=== PATIENT | female | born 1985 | race Caucasian/White ===

== ENCOUNTER 2017-04-25 13:47 | Emergency (ER) | payer MEDICAID, OTHER ==
[2017-04-25 14:46] VITALS: BP 136/68; PULSE 97; RESP 18; TEMP 98.5; O2SAT 98
--- NOTE | 2017-04-25 15:11 | C.PDOC ---
History Of Present Illness 31 year old female presents to ED with complaints of right ear pain for 4 days that radiates into her throat and neck. She admits to recent swimming in the pool and feeling water stuck in ear. She denies any fever, discharge, injury, foreign body sensation. Time Seen by Provider: 04/25/17 15:02 Chief Complaint (Nursing): ENT Problem History Per: Patient History/Exam Limitations: None Onset/Duration Of Symptoms: Days (4) Current Symptoms Are (Timing): Still Present Quality (Ear): Pain W/Touch. denies: Redness, Swelling, Discharge, Foreign Body Past Medical History Reviewed: Historical Data, Nursing Documentation, Vital Signs Vital Signs: Last Vital Signs Temp 98.5 F 04/25/17 14:45 Pulse 97 H 04/25/17 14:45 Resp 18 04/25/17 14:45 BP 136/68 04/25/17 14:45 Pulse Ox 98 04/25/17 15:58 Family History: States: Unknown Family Hx - Social History Hx Tobacco Use: No Hx Alcohol Use: No Hx Substance Use: No - Immunization History Hx Tetanus Toxoid Vaccination: Yes Hx Influenza Vaccination: Yes (06/2016) Hx Pneumococcal Vaccination: No Review Of Systems Except As Marked, All Systems Reviewed And Found Negative. Constitutional: Negative for: Fever, Chills ENT: Positive for: Ear Pain (right), Throat Pain. Negative for: Ear Discharge, Mouth Pain, Throat Swelling Musculoskeletal: Positive for: Neck Pain. Negative for: Shoulder Pain, Back Pain Skin: Negative for: Rash Physical Exam - Physical Exam Appears: Non-toxic, No Acute Distress Skin: Normal Color, Warm, Dry Head: Atraumatic, Normacephalic Eye(s): bilateral: Normal Inspection, EOMI Ear(s): Left: Normal, Right: Other (tragus tender to palpation, ear canal edematous and tender with exudates, TM dull) Nose: Normal Oral Mucosa: Moist Throat: Normal, No Erythema, No Exudate, No Drooling Neck: Normal ROM, Supple Cardiovascular: Rhythm Regular, No Murmur Respiratory: Normal Breath Sounds, No Rales, No Rhonchi, No Wheezing Extremity: Bilateral: Atraumatic, Normal ROM Neurological/Psych: Oriented x3, Normal Speech, Normal Cognition ED Course And Treatment O2 Sat by Pulse Oximetry: 98 (RA) Pulse Ox Interpretation: Normal Medical Decision Making Medical Decision Makin31 year old female with right ear pain, exam consistent with OE. Will treat with otic drops. Recommend Motrin for pain. Disposition Counseled Patient/Family Regarding: Need For Followup, Rx Given - Disposition Referrals: Denys Justin MD [Staff Provider] - Disposition: HOME/ ROUTINE Disposition Time: 15:10 Condition: STABLE Additional Instructions: Follow up with your primary medical doctor or clinic in 2-5 days for further evaluation. Take medications as prescribed. Return to the emergency department at any time if symptoms persist or worsen. Prescriptions: Ibuprofen [Motrin Tab] 800 mg PO Q12 #14 tab Ofloxacin Otic 0.3% [Floxin 0.3% Otic Soln] 2 drop AD BID #1 bottle Instructions: Otitis Externa (ED) Forms: [employer] (Guinean) - POA Present On Arrival: None - Clinical Impression Clinical Impression: Otitis externa - PA / EMERGENCY SERVICES DIRECTOR / Resident Statement MD/DO has reviewed & agrees with the documentation as recorded. - Scribe Statement The provider has reviewed the documentation as recorded by the Scribedelmira Sage All medical record entries made by the Rachel were at my direction and personally dictated by me. I have reviewed the chart and agree that the record accurately reflects my personal performance of the history, physical exam, medical decision making, and the department course for this patient. I have also personally directed, reviewed, and agree with the discharge instructions and disposition.
== END 2017-04-25 16:01 | disposition home or self-care (01) ==
LOC: C.ER 13:47
DX: H60.91 Unspecified otitis externa, right ear (principal)

== ENCOUNTER 2018-05-04 09:06 | Emergency (ER) | payer MEDICAID, OTHER ==
[2018-05-04 09:10] VITALS: BMI 31.6
[2018-05-04 09:13] VITALS: RESP 18
[2018-05-04] MEDS ORDERED: Sodium Chloride 0.9% 1,000 ML IV ONE (09:44)
--- NOTE | 2018-05-04 09:44 | C.PDOC ---
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 Patient states she has intermittent suprapubic pain for 1 month that only appears when stretching. Patient states RLQ pain is sharp and she has more intense pelvic pain today. Patient notes the pain is similar to her liver cyst she had 15 years ago. Patient denies other PSHx, fever, nausea, vomiting, diarrhea, or UTI symptoms. Patient's LNMP was 2 weeks ago. WORSENING LOWER ABD PAIN, NEW ONSET RLQ PAIN TODAY. INTERMIT SUPRAPUB PAIN X 1 MO, PRESENT ONLY DURING STRETCHING. NEW ONSET RLQ SHARP, MORE INTENSE PELVIC PAIN TODAY. HO LIVER CYST REMOVAL >15 YRS AGO "THIS FEELS SIMILIAR TO THAT". DENIES OTHER PSH. LMP 2 WEEKS. NO FEVER, NVD , UTI SX EXAM MILD DIST NONTOXIC ABD MIN RLQ TEND OBESE SOFT NO R/G REMAINDER NEG MDM RO STONE VS APPY, RUPTURED CYST. PT OFFERED PAIN RX, DOES NOT WANT @ THIS TIME. Time Seen by Provider: 05/04/18 09:26 Chief Complaint (Nursing): Abdominal Pain History Per: Patient History/Exam Limitations: no limitations Onset/Duration Of Symptoms: Days (x1 month) Current Symptoms Are (Timing): Still Present Location Of Pain/Discomfort: RLQ, Suprapubic Associated Symptoms: Other (LNMP 2 weeks ago). denies: Fever, Chills, Nausea, Vomiting, Urinary Symptoms Past Medical History Reviewed: Historical Data, Nursing Documentation, Vital Signs Vital Signs: Last Vital Signs Temp 98.4 F 05/04/18 12:26 Pulse 71 05/04/18 12:26 Resp 18 05/04/18 12:26 BP 121/77 05/04/18 12:26 Pulse Ox 99 05/04/18 12:26 Family History: States: Unknown Family Hx - Social History Hx Tobacco Use: No Hx Alcohol Use: No Hx Substance Use: No - Immunization History Hx Tetanus Toxoid Vaccination: Yes Hx Influenza Vaccination: Yes (06/2016) Hx Pneumococcal Vaccination: Yes Review Of Systems Except As Marked, All Systems Reviewed And Found Negative. Constitutional: Negative for: Fever, Other (hx of other PSHx) Gastrointestinal: Positive for: Abdominal Pain (suprapubic and RLQ). Negative for: Nausea, Vomiting, Diarrhea Genitourinary: Negative for: Other (UTI symptoms) Physical Exam - Physical Exam Appears: Well, Non-toxic, In Acute Distress (mild ), Other (obese) Skin: Normal Color, Warm, Dry Head: Atraumatic, Normacephalic Eye(s): bilateral: Normal Inspection Neck: Normal ROM, Supple Chest: Symmetrical, No Deformity Cardiovascular: Rhythm Regular Respiratory: Normal Breath Sounds, No Rales, No Rhonchi, No Wheezing Gastrointestinal/Abdominal: Soft, Tenderness (abd minor RLQ tenderness), No Guarding, No Rebound Back: No CVA Tenderness Extremity: Normal ROM (x4) Neurological/Psych: Oriented x3, Normal Speech, Normal Motor, Normal Sensation, Normal Reflexes Gait: Steady ED Course And Treatment - Laboratory Results Result Diagrams: 05/04/18 09:59 05/04/18 09:59 O2 Sat by Pulse Oximetry: 98 (RA) Pulse Ox Interpretation: Normal Progress Note: Impression: intermittent suprapubic pain x1 month with new onset RLQ pain. Plans: -- CT abdomen/pelvis. -- blood work. -- IV fluids. -- test. Reassess: Patient is resting comfortably, abdomen remains soft. Patient is advised to f/u with PCP in 1-2 days. -- UA Progress - Re-Evaluation Re-evaluation Note: 05/04/18 13:47 CT REPORT REVIEWED. VSS ADVISED FU OBGYN - Data Reviewed Data Reviewed: Lab, Diagnostic imaging, Old records Medical Decision Making Medical Decision Making: R/o stone vs appendicitis, ruptured cyst. Patient offered pain medications, but does not want it at this time. Disposition Counseled Patient/Family Regarding: Studies Performed, Diagnosis, Need For Followup - Disposition Referrals: [facility] [Outside] [facility] [Outside] [facility],OBGYN [Other] Disposition: HOME/ ROUTINE Disposition Time: 13:48 Condition: IMPROVED Prescriptions: Acetaminophen with Codeine [Tylenol with Codeine No. 3 300 mg-30 mg] 1 tab PO Q6 PRN #12 tab PRN Reason: Pain, Moderate (4-7) Ibuprofen [Motrin] 600 mg PO Q6 #30 tab Instructions: Acute Pelvic Pain (DC) Forms: [employer] (Guyanese) - Clinical Impression Clinical Impression: Abdominal pain, Pelvic pain - Scribe Statement The provider has reviewed the documentation as recorded by the Rachel Adames Do Provider Attestation: All medical record entries made by the Rachel were at my direction and personally dictated by me. I have reviewed the chart and agree that the record accurately reflects my personal performance of the history, physical exam, medical decision making, and the department course for this patient. I have also personally directed, reviewed, and agree with the discharge instructions and disposition.
[2018-05-04 09:55] LABS: SQUAMOUS EPITHIAL 37 /hpf (0-5); URINE BACTERIA RARE (<OCC); URINE BILIRUBIN NEGATIVE (NEGATIVE); URINE BLOOD NEGATIVE (NEGATIVE); URINE CLARITY Hazy (Clear); URINE COLOR Yellow (YELLOW); URINE GLUCOSE (UA) NORMAL (Normal); URINE LEUKOCYTE ESTERASE NEG Leu/uL (Negative); URINE PROTEIN NEGATIVE (NEGATIVE)
[2018-05-04 10:04] LABS: BASO % 0.5 % (0.0-2.0); EOS # 0.2 K/uL (0.0-0.7); HEMOGLOBIN 14.5 g/dL (11.0-16.0); LYMPH # 1.8 K/uL (1.0-4.3); LYMPH % 22.8 % (20.0-40.0); MEAN CELL VOLUME 89.6 fL (81.0-99.0); MEAN CORPUSCULAR HEMOGLOBIN 31.1 pg (27.0-31.0); MEAN CORPUSCULAR HGB CONC 34.7 g/dL (33.0-37.0); MEAN PLATELET VOLUME 8.8 fL (7.2-11.7); MONO # 0.6 K/uL (0.0-0.8); MONO % 7.4 % (0.0-10.0); NEUT # 5.4 K/uL (1.8-7.0); NEUT % 67.3 % (50.0-75.0); NRBC % 0.1 % (0.0-2.0); RBC 4.66 Mil/uL (3.80-5.20); WHITE BLOOD COUNT 7.9 K/uL (4.8-10.8)
[2018-05-04 10:39] LABS: ALB/GLOB RATIO 1.2 (1.0-2.1); ALT/SGPT 28 U/L (9-52); AST/SGOT 18 U/L (14-36); BLOOD UREA NITROGEN 13 mg/dL (7-17); CALCIUM 9.1 mg/dl (8.6-10.4); GFR AFRICAN-AMERICAN > 60; GFR NON-AFRICAN AMERICAN > 60; LIPASE 68 U/L (23-300)
[2018-05-04] MEDS ORDERED: Iohexol 350mg/ml 100 ML ONE (11:59)
--- NOTE | 2018-05-04 12:44 | CT ---
Date of service: 05/04/2018 PROCEDURE: CT Abdomen and Pelvis with and without intravenous contrast HISTORY: RLQ PAIN RO APPY VS RENAL STONE COMPARISON: None. TECHNIQUE: Axial images of the abdomen were obtained in the pre contrast, portal venous and delayed phases of enhancement. Coronal and sagittal reformats were generated. Contrast dose: Omnipaque 350, 100 cc Radiation dose: Total exam DLP = 1400.75 mGy-cm. This CT exam was performed using one or more of the following dose reduction techniques: Automated exposure control, adjustment of the mA and/or kV according to patient size, and/or use of iterative reconstruction technique. FINDINGS: LOWER THORAX: Trace bilateral basilar dependent atelectasis identified. LIVER: Unremarkable. No gross lesion or ductal dilatation. GALLBLADDER AND BILE DUCTS: Surgical associated inferolateral to the gallbladder fossa of uncertain origin. The gallbladder is mildly distended and otherwise appears unremarkable. Common bile duct upper limits normal caliber without radiodense choledocholithiasis in the lumen. PANCREAS: Unremarkable. No gross lesion or ductal dilatation. SPLEEN: Unremarkable. ADRENALS: Bilaterally normal. KIDNEYS AND URETERS: There is no radiodense urolithiasis, obstructive uropathy or perinephric reaction bilaterally. Kidneys appear homogeneous in overall density throughout. Urinary bladder appears unremarkable as well. VASCULATURE: Unremarkable. No aortic aneurysm. BOWEL: Evaluation of the gastrointestinal tract is limited due the lack of oral contrast administration. No obstruction. No gross mural thickening. APPENDIX: Normal appendix. PERITONEUM: Unremarkable. No free fluid. No free air. LYMPH NODES: Unremarkable. No enlarged lymph nodes. BLADDER: Unremarkable. REPRODUCTIVE: Unremarkable. BONES: No acute fracture. OTHER FINDINGS: None. IMPRESSION: No acute abdominal or pelvic findings. This includes obstructive uropathy with a normal-appearing appendix. Postop changes right upper quadrant abdomen inferolateral to the gallbladder fossa. Unremarkable gallbladder.
[2018-05-04 14:11] VITALS: BP 103/69; PULSE 75; TEMP 98.2; O2SAT 99
== END 2018-05-04 14:20 | disposition home or self-care (01) ==
LOC: C.ER 09:06
DX: R10.2 Pelvic and perineal pain (principal); R10.9 Unspecified abdominal pain
CPT/HCPCS: 74178; 80053; 81001; 83690; 85025; 96361; 96374; 99285; J1885; J7030; Q9967

== ENCOUNTER 2018-11-01 18:07 | Emergency (ER) | payer MEDICAID ==
[2018-11-01 18:08] VITALS: BMI 31.6
[2018-11-01 18:49] VITALS: BP 139/88; PULSE 87; RESP 18; TEMP 98.6; O2SAT 98
--- NOTE | 2018-11-01 20:38 | C.PDOC ---
History Of Present Illness 33 year old female presents to the ED for evaluation of fever, chills, throat pain, eye irritation and nasal congestion which began two week sago. Patient states she has been taking NyQuil without relief. She denies cough, nausea, vomiting, diarrhea. Chief Complaint (Nursing): Flu-like Symptoms History Per: Patient History/Exam Limitations: no limitations Onset/Duration Of Symptoms: Other (two weeks ) Current Symptoms Are (Timing): Still Present Associated Symptoms: Fever, Chills, Sore Throat, Nasal Congestion. denies: Cough, Nausea, Vomiting, Diarrhea Additional History Per: Patient Past Medical History Reviewed: Historical Data, Nursing Documentation, Vital Signs Vital Signs: Last Vital Signs Temp 98.6 F 11/01/18 18:47 Pulse 87 11/01/18 18:47 Resp 18 11/01/18 18:47 BP 139/88 11/01/18 18:47 Pulse Ox 98 11/01/18 18:47 - Medical History PMH: No Chronic Diseases Surgical History: No Surg Hx Family History: States: Unknown Family Hx - Social History Hx Tobacco Use: No Hx Alcohol Use: Yes Hx Substance Use: No - Immunization History Hx Tetanus Toxoid Vaccination: No Hx Influenza Vaccination: No Hx Pneumococcal Vaccination: No Review Of Systems Constitutional: Positive for: Fever, Chills. Negative for: Weakness Eyes: Positive for: Other (eye irritation ) ENT: Positive for: Nose Congestion, Throat Pain. Negative for: Mouth Swelling Cardiovascular: Negative for: Chest Pain Respiratory: Negative for: Cough, Shortness of Breath Gastrointestinal: Negative for: Nausea, Vomiting, Diarrhea Musculoskeletal: Negative for: Back Pain Skin: Negative for: Rash Neurological: Negative for: Weakness, Numbness, Dizziness Physical Exam - Physical Exam Appears: Well, Non-toxic, No Acute Distress Skin: Normal Color, Warm, No Rash Head: Atraumatic, Normacephalic, No Tenderness (with percussion of sinuses ) Eye(s): bilateral: PERRL, EOMI, right: Normal Inspection, left: Other (conjunctival injection. no discharge or excessive tearing ) Ear(s): Bilateral: Normal (no drainage ) Nose: Discharge (clear, mucus ), Other (enlarged turbinates bilaterally ) Oral Mucosa: Moist Throat: Erythema, No Exudate, No Drooling, Other (airway patent, no swelling ) Neck: Normal ROM, Supple Lymphatic: No Adenopathy (cervical ) Chest: Symmetrical Respiratory: No Accessory Muscle Use, Other (normal inspiratory effort ) Back: Other (ambulating with steady upright gait) Extremity: Normal ROM Extremity: Bilateral: Atraumatic Pulses: Left Radial: Normal, Right Radial: Normal Neurological/Psych: Oriented x3, Normal Cranial Nerves (grossly intact ) ED Course And Treatment O2 Sat by Pulse Oximetry: 98 (on RA ) Pulse Ox Interpretation: Normal Medical Decision Making Medical Decision Making: Progress: Rapid strep ordered. Disposition Counseled Patient/Family Regarding: Studies Performed, Diagnosis, Need For Followup, Rx Given - Disposition Disposition: HOME/ ROUTINE Disposition Time: 20:53 Condition: STABLE Prescriptions: Cetirizine HCl/Pseudoephedrine [Zyrtec-D Tablet] 1 each PO DAILY #14 tab.er.12h Ibuprofen [Motrin Tab] 600 mg PO TID PRN 7 Days tab PRN Reason: Fever >100.4 F Tobramycin 0.3% [Tobrex 0.3% Ophth Soln] 5 drop OS QID #1 bottle Instructions: Viral Pharyngitis, Conjunctivitis ([place]) Forms: General Discharge Instructions, [employer] [facility] (Hungarian), Work Excuse - Clinical Impression Clinical Impression: Pharyngitis, Conjunctivitis - PA / EMERGENCY ROOM PHYSICIAN ASSISTANT / Resident Statement MD/DO has reviewed & agrees with the documentation as recorded. - Scribe Statement The provider has reviewed the documentation as recorded by the Scribe (Kandy Sage) All medical record entries made by the Scribe were at my direction and personally dictated by me. I have reviewed the chart and agree that the record accurately reflects my personal performance of the history, physical exam, medical decision making, and the department course for this patient. I have also personally directed, reviewed, and agree with the discharge instructions and disposition.
== END 2018-11-01 21:08 | disposition home or self-care (01) ==
LOC: C.ER 18:07
DX: J02.9 Acute pharyngitis, unspecified (principal); H10.9 Unspecified conjunctivitis